=== PATIENT | female | born 1975 | race Caucasian/White ===

== ENCOUNTER 2023-12-15 13:19 | Inpatient (IN) | payer OTHER ==
[~2023-12-15] VITALS: Ht 175.3 cm; Wt 80.6 kg
[2023-12-15 13:50] LABS: BASOPHILS ABSOLUTE AUTO 0.06 K/mm3 (0.00-0.23); BASOPHILS PERCENT AUTO 0 % (0-2); EOSINOPHILS ABSOLUTE AUTO 0.07 K/mm3 (0.00-0.68); EOSINOPHILS PERCENT AUTO 0 % (0-6); Hematocrit 46.9 % (33.0-51.0); Hemoglobin 16.3 g/dL (11.5-16.0); IMMATURE GRAN ABSOLUTE AUTO 0.13 K/mm3 (0.00-0.10); IMMATURE GRAN PERCENT AUTO 1 % (0-1); LYMPHOCYTES ABSOLUTE AUTO 1.47 K/mm3 (0.84-5.20); LYMPHOCYTES PERCENT AUTO 7 % (21-46); MONOCYTES ABSOLUTE AUTO 1.05 K/mm3 (0.16-1.47); MONOCYTES PERCENT AUTO 5 % (4-13); Mean Corpuscular HGB 32.2 pg (26.0-34.0); Mean Corpuscular HGB Conc 34.8 g/dL (31.5-36.5); Mean Corpuscular Volume 93 fL (80-100); Mean Platelet Volume 9.6 fL (9.1-12.4); NEUTROPHILS ABSOLUTE AUTO 18.41 K/mm3 (1.96-9.15); NEUTROPHILS PERCENT AUTO 87 % (41-73); Platelet Count 302 K/mm3 (150-400); RDW Coefficient Variation 12.5 % (11.7-14.2); RDW Standard Deviation 42.9 fL (35.1-46.3); Red Blood Cell Count 5.06 M/mm3 (3.80-5.20); White Blood Cell Count 21.19 K/mm3 (4.00-11.30)
[2023-12-15 14:12] LABS: Albumin, Blood 3.6 g/dL (3.4-5.0); Albumin/Globulin Ratio 0.9 (0.8-1.8); Bilirubin, Total 0.6 mg/dL (0.1-1.0); Bun/Creatinine Ratio 10.4 (12.0-20.0); Calcium, Blood 9.5 mg/dL (8.5-10.1); Creatinine, Blood 0.77 mg/dL (0.40-1.00); Potassium, Blood 3.4 mmol/L (3.5-5.5); Total Protein, Blood 7.6 g/dL (6.4-8.2)
[2023-12-15] MEDS ORDERED: Piperacillin/Tazobactam Sod 3.375 GM in NS 100 ML IV ONE (14:15)
[2023-12-15] MEDS ORDERED: FentaNYL Citrate 50 MCG/ML 2 ML Injection IV STA (15:39)
[2023-12-15] MEDS ORDERED: ChlordiazePOXIDE 25 MG Cap PO PRN ×2 (15:45→16:45)
[2023-12-15] MEDS ORDERED: NS 1,000 ML IV SCH (15:45)
[2023-12-15] MEDS ORDERED: Acetaminophen 325 MG TABLET PO PRN (15:45)
[2023-12-15] MEDS ORDERED: Ondansetron HCl 2 MG / ML 2ML Vial IV PRN (15:45)
[2023-12-15] MEDS ORDERED: HydrALAZINE HCl 20 MG / ML 1ML Vial IV PRN (15:50)
[2023-12-15] MEDS ORDERED: LORazepam 2 MG/ML 1ML Injection IV PRN ×2 (15:50→16:45)
[2023-12-15] MEDS ORDERED: Potassium Chloride 20 MEQ TabCR PO ONE (15:55)
[2023-12-15] MEDS ORDERED: FentaNYL Citrate 50 MCG/ML 2 ML Injection IV PRN ×2 (16:00→16:45)
[2023-12-15] MEDS ORDERED: Cefepime HCl 2,000 MG in NS 100 ML IV SCH (16:00)
[2023-12-15 18:27] VITALS: BP 117/79
--- NOTE | 2023-12-15 18:39 | NUR ---
Pt arrived to 329 via gurney from ED, report obtained from psychiatric nursing aide, pt able to stand and transfer self to the bed, is holding her right arm up for comfort, she reports it's burning, a/ox4, pleasant and coopertive with care, follows commands well, lungs are clear t/o, resp even and unlabored, no cough noted, hrr, no edema noted except to right arm, makayla hand, pictures obtained and in chart, btx4, abd flat soft nontender, voids without diff, skin c/w/d, ivette manuel, oriented to room layout and call system, call light in reach.
[2023-12-15 19:37] VITALS: BP 110/70
[2023-12-15] MEDS ORDERED: Lactobacil 2-S.Thermo-Bifido 1 1 Cap PO SCH (21:00)
[2023-12-15] MEDS ORDERED: Famotidine 20 MG Tab PO SCH (21:00)
[2023-12-16] MEDS ORDERED: Vancomycin HCL 1,250 MG in NS 250 ML IV SCH (04:00)
[2023-12-16 04:05] VITALS: BP 112/76
--- NOTE | 2023-12-16 04:54 | NUR ---
SHIFT SUMMARY PT. IS A&O X4, ABLE TO MAKE HR NEEDS KNOWN, COOP WITH CARE, PLEASANT. CIWA SCORE 0. LS CLEAR TO AUSCULTATION. ABX INFUSED ORDERED. RIGHT ARM RESTING ON PILLOWS. NOTED PT. OUTPUT INCREASING. C/O RIGHT ARM PAIN 7/10WORST, MEDICATED THREE TIMES DURING THIS SHIFT(SEE EMAR.) PT. REPORTS PAIN MEDS SOMEWHAT EFFECTIVE, PAIN DOWN TO 5/10WORST. PT. HAS BEEN RESTING T/O THE NIGHT, NO ACUTE EVENTS/DISTRESS NOTED OR REPORTED. CALL LIGHT IN REACH, WILL PASS ON TO INCOMING SHIFT NURSE.
[2023-12-16 05:31] LABS: Hematocrit 41.1 % (33.0-51.0); Hemoglobin 14.1 g/dL (11.5-16.0); Mean Corpuscular HGB 31.7 pg (26.0-34.0); Mean Corpuscular HGB Conc 34.3 g/dL (31.5-36.5); Mean Corpuscular Volume 92 fL (80-100); Mean Platelet Volume 9.8 fL (9.1-12.4); Platelet Count 267 K/mm3 (150-400); RDW Coefficient Variation 12.5 % (11.7-14.2); RDW Standard Deviation 42.3 fL (35.1-46.3); Red Blood Cell Count 4.45 M/mm3 (3.80-5.20)
[2023-12-16 05:54] LABS: Bun/Creatinine Ratio 12.7 (12.0-20.0); Calcium, Blood 8.6 mg/dL (8.5-10.1); Creatinine, Blood 0.55 mg/dL (0.40-1.00); Potassium, Blood 3.7 mmol/L (3.5-5.5)
[2023-12-16] MEDS ORDERED: HYDROcodone 5-APAP 325 TAB PO PRN (07:30)
[2023-12-16] MEDS ORDERED: Ketorolac Tromethamine 15mg Vial IV PRN (07:35)
[2023-12-16 07:58] VITALS: BP 120/77
[2023-12-16] MEDS ORDERED: Folic Acid 1 MG in NS 50 ML IV SCH (09:00)
[2023-12-16] MEDS ORDERED: Enoxaparin 40 MG/0.4 ML SYR SC SCH (09:00)
[2023-12-16] MEDS ORDERED: Thiamine HCl 100 MG Tab PO SCH (09:00)
[2023-12-16] MEDS ORDERED: Thiamine HCl 100 MG in NS 50 ML IV SCH (09:00)
[2023-12-16] MEDS ORDERED: Multivitamins 1 Tab PO SCH (09:00)
[2023-12-16] MEDS ORDERED: Nicotine 14 MG PATCH TOP SCH (09:00)
[2023-12-16 15:29] VITALS: BP 135/87
--- NOTE | 2023-12-16 18:16 | NUR ---
END OF SHIFT SUMMARY- PT WAS PLEASANT THROUGHOUT THE SHIFT. A&Ox4 ON ROOM AIR. PAIN CONTROLLED WITH EMAR MEDICATIONS; TORADOL AND NORCO. DR. MURPHY CAME AND DRAINED THE RIGHT HAND BLISTER. CULTURES SENT TO LAB. PT IS INDEPENDENT UP IN THE ROOM. APPETITE GOOD. PT STATED SHE USES MARIJUANA AND METH RECREATIONALLY. NO IV DRUG USE. DRINKS ALCOHOL DAILY, 3-4 WHITE CLAWS IN THE EVENING AND SOMETIMES WINE FROM THE [place], BUT NO MORE THAN THAT. SHE WOULD BE OPEN TO THINKING ABOUT REHAB, BUT SHE ALSO "LIKES THE LIFE SHE LIVES."
[2023-12-16 19:21] VITALS: BP 136/84
[2023-12-17] MEDS ORDERED: NS 250 ML IV PRN (00:40)
[2023-12-17 03:12] VITALS: BP 132/90
[2023-12-17 03:22] LABS: Vancomycin, Trough 8.3 ug/mL (5.0-10.0)
[2023-12-17] MEDS ORDERED: Vancomycin HCL 1,250 MG in NS 250 ML IV SCH (04:00)
--- NOTE | 2023-12-17 06:28 | NUR ---
SHIFT SUMMARY PT MEDICATED FOR PAIN X1. MENTIONED HER WRAP IS UNCOMFORTABLE. EXPLAINED IT IS KEEPING HER WOUNDS CLEAN. IV ANTIBIOTICS ADMINISTERED THROUGH NIGHT. PT PLEASANT AND COOPERATIVE WITH CARE.
[2023-12-17 08:00] VITALS: BP 128/90
[2023-12-17 15:12] VITALS: BP 131/77
--- NOTE | 2023-12-17 17:03 | NUR ---
SHIFT SUMMARY Pt remains A&Ox3 this shift. VSS. Pain managed with po meds. Resp even nonlabored on RA. Up to bathroom independently. IV antibx given as ordered for right arm cellulitis. Tolerating nutrition. No further needs id or verbalized at this time. Will continue to monitor.
[2023-12-17 20:40] VITALS: BP 147/96
[2023-12-18 03:01] VITALS: BP 120/80
[2023-12-18 03:06] LABS: Hematocrit 40.2 % (33.0-51.0); Hemoglobin 13.9 g/dL (11.5-16.0); Mean Corpuscular HGB 31.7 pg (26.0-34.0); Mean Corpuscular HGB Conc 34.6 g/dL (31.5-36.5); Mean Corpuscular Volume 92 fL (80-100); Mean Platelet Volume 9.8 fL (9.1-12.4); Platelet Count 304 K/mm3 (150-400); RDW Standard Deviation 40.3 fL (35.1-46.3); Red Blood Cell Count 4.39 M/mm3 (3.80-5.20); White Blood Cell Count 11.27 K/mm3 (4.00-11.30)
[2023-12-18 03:36] LABS: Anion Gap 8 mmol/L (3-11); Blood Urea Nitrogen 7 mg/dL (8-24); Bun/Creatinine Ratio 13.6 (12.0-20.0); CO2, Blood 27 mmol/L (21-32); Calcium, Blood 8.5 mg/dL (8.5-10.1); Chloride, Blood 112 mmol/L (98-108); Creatinine, Blood 0.51 mg/dL (0.40-1.00); Glomerular Filtration Rate 117 (60-); Glucose, Blood 89 mg/dL (70-99); Potassium, Blood 3.5 mmol/L (3.5-5.5); Sodium, Blood 143 mmol/L (136-145)
[2023-12-18 07:02] VITALS: BP 131/90
--- NOTE | 2023-12-18 07:24 | NUR ---
SHIFT SUMMARY PT FEELING WELL THIS AM. THE REDNESS ON HER ARM HAS DECREASED. SHE IS CONTINUING TO RECEIVE ANTIBIOTICS AND TOLERATING HER PAIN MANAGEMENT REGEMIN WELL.
[2023-12-18] MEDS ORDERED: Ketorolac Tromethamine 15mg Vial IV PRN (09:10)
[2023-12-18 15:53] VITALS: BP 151/97
--- NOTE | 2023-12-18 16:44 | NUR ---
SHIFT SUMMARY Pt remains A&Ox3 this shift. VSS. Pain managed with Ketorlac and Tylenol. Right hand redness improving. IV antibx given as ordered. Tolerating meals. Up to the bathroom independently. NO further needs id or verbalized at this time.
[2023-12-18 19:32] VITALS: BP 161/89
[2023-12-19 03:32] VITALS: BP 136/82
[2023-12-19 03:51] LABS: Vancomycin, Trough 17.9 ug/mL (5.0-10.0)
[2023-12-19 07:19] VITALS: BP 144/95
[2023-12-19] MEDS ORDERED: Acetaminophen650 M1 PO (10:31)
[2023-12-19] MEDS ORDERED: Nicoderm Cq1 EAC1 TOP (10:31)
[2023-12-19] MEDS ORDERED: MULVITA PO (10:31)
[2023-12-19] MEDS ORDERED: AMOCLA875 PO (10:32)
[2023-12-19] MEDS ORDERED: VISBIOME 112.51 EACH PO (10:32)
--- NOTE | 2023-12-19 13:55 | NUR ---
PT D/C @0553 INDEPEDENTLY WITH MOTHER. IV REMOVED FROM [facility] W/O COMPLICATIONS. TELE SENT BACK. WOUND SUPPLIES GIVEN TO PT. MEDICATIONS FAXED TO [facility]. NO QUESTIONS AT TIME OF DISCHARGE.
== END 2023-12-19 12:32 | disposition home or self-care (01) | DRG 872 ==
LOC: ER 13:19 → MEDS 15:39
PROVIDERS: Physician Assistant; ADMIT Internal Medicine
PROC: 3E03329 Introduction of Other Anti-infective into Peripheral Vein, Percutaneous Approach (ICD-10-PCS; principal; 2023-12-15)
PROC: 0H9FXZZ Drainage of Right Hand Skin, External Approach (ICD-10-PCS; 2023-12-16)
DX: A41.9 Sepsis, unspecified organism (principal); L03.113 Cellulitis of right upper limb; F15.10 Other stimulant abuse, uncomplicated; E87.6 Hypokalemia; F32.A Depression, unspecified; F10.20 Alcohol dependence, uncomplicated; B95.0 Streptococcus, group A, as the cause of diseases classified elsewhere; F17.210 Nicotine dependence, cigarettes, uncomplicated; Z90.49 Acquired absence of other specified parts of digestive tract; Z71.51 Drug abuse counseling and surveillance of drug abuser
CPT/HCPCS: 36415; 73201; 80048; 80053; 80202; 83605; 85025; 85027; 87040; 87070; 87075; 87147; 87205; 96365-59; 96375; 99284-25; A9270; J0692; J1650; J1885; J2543; J3010; J3370; J7030; J7050; Q9967